=== PATIENT | female | born 1960 | race Caucasian/White ===

== ENCOUNTER 2016-11-30 19:09 | Inpatient (IN) | payer OTHER ==
[2016-11-30] MEDS ORDERED: SODIUM CHLORIDE 0.9% 500 ML IV STA (19:42)
[2016-11-30 19:55] LABS: Basophils % (A) 0 %; CH 31.9; Eosinophils % (A) 0 %; HDW 2.08; HGB 16.4 gm/dL (11.4-16.0); Luc # (Auto) 0.31; Luc % (Auto) 4; Lymphocytes % (A) 35 %; MCH 31.2 pg (25.0-35.0); MCHC 32.2 g/dL (31.0-37.0); MCV 97.1 fL (80.0-100.0); Mean Platelet Volume 7.4; Monocytes # (A) 0.6 k/uL (0-1.0); Monocytes % (A) 7 %; Neutrophils # (A) 4.7 k/uL (1.3-7.7); Neutrophils % (A) 54 %; RBC 5.25 m/uL (3.80-5.40); WBC 8.7 k/uL (3.8-10.6); WBC (Perox) 8.59
--- NOTE | 2016-11-30 19:56 | ED ---
Overdose HPI - General Chief Complaint: Overdose Stated Complaint: Overdose Time Seen by Provider: 11/30/16 19:25 Source: patient Mode of arrival: EMS Limitations: altered mental status - History of Present Illness Initial Comments: This patient is a 56-year-old woman who comes in by embolus to be evaluated for probable overdose. It is reported that the patient had been drinking, and then family believe she took probably around 20 or more Ativan 0.5 mg tablets. The patient reportedly told him that she was feeling suicidal. When I am evaluating the patient she is very intoxicated and not giving me any history. MD Complaint: intentional overdose -: hour(s) Intent: other How Overdose Was Discovered: family/friend present at time - Related Data Home Medications Medication Instructions Recorded Confirmed Albuterol Inhaler [Ventolin Hfa 1 - 2 puff INHALATION RT-Q6H PRN 11/30/16 Inhaler] Desvenlafaxine Succinate [Pristiq] 100 mg PO DAILY 11/30/16 11/30/16 Ergocalciferol (Vitamin D2) 50,000 unit PO Q7D 11/30/16 11/30/16 [Vitamin D2] HYDROcodone/APAP 10-325MG [[place] 1 tab PO Q5H PRN 11/30/16 11/30/16 10-325] LORazepam [Ativan] 0.5 mg PO BID 11/30/16 11/30/16 Lurasidone HCl [Latuda] 60 mg PO DAILY 11/30/16 11/30/16 Omeprazole 40 mg PO DAILY 11/30/16 11/30/16 PARoxetine HCL [Paxil] 40 mg PO DAILY 11/30/16 11/30/16 Umeclidinium [place] [Incruse 1 puff INHALATION RT-DAILY 11/30/16 11/30/16 Ellipta] Previous Rx's Medication Instructions Recorded Disulfiram 250 mg PO DIRECTED #50 tablet 12/01/16 Nicotine 21Mg/24Hr Patch [Habitrol] 1 patch TRANSDERM DAILY #14 patch 12/01/16 predniSONE 10 mg PO DAILY #30 tab 12/01/16 Allergies Allergy/AdvReac Type Severity Reaction Status Date / Time latex Allergy Rash/Hives Verified 11/30/16 19:54 Review of Systems ROS Statement: Those systems with pertinent positive or pertinent negative responses have been documented in the HPI. ROS Other: All systems not noted in ROS Statement are negative. Limitations: ROS unobtainable due to patients medical condition Past Medical History Past Medical History: COPD Additional Past Medical History / Comment(s): fatty liver History of Any Multi-Drug Resistant Organisms: None Reported Additional Past Surgical History / Comment(s): polyps on throat removed Past Anesthesia/Blood Transfusion Reactions: Previous Problems w/ Anesthesia Past Psychological History: Anxiety, Depression Smoking Status: Current every day smoker Past Alcohol Use History: Abuse, Daily Past Drug Use History: None Reported - Past Family History Father Family Medical History: Seizure Disorder Mother Family Medical History: COPD, Diabetes Mellitus, Hypertension Additional Family Medical History / Comment(s): rapid heart rate General Exam Limitations: altered mental status General appearance: appears intoxicated Head exam: Present: atraumatic, normocephalic Eye exam: Present: normal appearance, PERRL, EOMI. Absent: scleral icterus, conjunctival injection ENT exam: Present: normal oropharynx Neck exam: Present: full ROM. Absent: tenderness, meningismus Respiratory exam: Present: normal lung sounds bilaterally. Absent: respiratory distress, wheezes, rales, rhonchi, stridor Cardiovascular Exam: Present: normal rhythm, tachycardia, normal heart sounds. Absent: systolic murmur, diastolic murmur, rubs, gallop GI/Abdominal exam: Present: soft. Absent: distended, tenderness, guarding, rebound, organomegaly, mass, pulsatile mass, hernia Extremities exam: Present: normal inspection, normal capillary refill. Absent: pedal edema, calf tenderness Back exam: Present: normal inspection. Absent: CVA tenderness (R), CVA tenderness (L) Neurological exam: Present: altered, CN II-XII intact, reflexes normal. Absent : motor sensory deficit Skin exam: Present: warm, dry, intact, normal color. Absent: rash Course Vital Signs 11/30/16 11/30/16 11/30/16 19:10 19:46 20:31 Temperature 98.5 F Pulse Rate 125 H 120 H 114 H Respiratory 18 20 22 Rate Blood Pressure 117/67 116/60 107/58 O2 Sat by Pulse 92 L 92 L 93 L Oximetry 11/30/16 11/30/16 11/30/16 21:00 21:30 22:30 Temperature Pulse Rate 114 H 110 H 103 H Respiratory 20 20 22 Rate Blood Pressure 102/56 99/56 102/59 O2 Sat by Pulse 92 L 92 L 93 L Oximetry 11/30/16 12/01/16 12/01/16 23:58 00:05 00:30 Temperature Pulse Rate 98 99 105 H Respiratory 20 Rate Blood Pressure 109/57 O2 Sat by Pulse 93 L Oximetry 12/01/16 12/01/16 12/01/16 01:22 02:25 03:36 Temperature Pulse Rate 102 H 98 98 Respiratory 20 18 18 Rate Blood Pressure 108/64 114/59 126/68 O2 Sat by Pulse 94 L 95 97 Oximetry 12/01/16 12/01/16 12/01/16 04:37 05:32 06:27 Temperature Pulse Rate 98 93 94 Respiratory 18 18 18 Rate Blood Pressure 126/68 105/53 98/53 O2 Sat by Pulse 97 98 97 Oximetry Medical Decision Making - Lab Data Result diagrams: 12/01/16 05:46 12/01/16 05:46 Lab Results 11/30/16 11/30/16 11/30/16 Range/Units 19:43 19:43 19:43 WBC 8.7 (3.8-10.6) k/uL RBC 5.25 (3.80-5.40) m/uL Hgb 16.4 H (11.4-16.0) gm/dL Hct 51.0 H (34.0-46.0) % MCV 97.1 (80.0-100.0) fL MCH 31.2 (25.0-35.0) pg MCHC 32.2 (31.0-37.0) g/dL RDW 13.0 (11.5-15.5) % Plt Count 214 (150-450) k/uL Neutrophils % 54 % Lymphocytes % 35 % Monocytes % 7 % Eosinophils % 0 % Basophils % 0 % Neutrophils # 4.7 (1.3-7.7) k/uL Lymphocytes # 3.0 (1.0-4.8) k/uL Monocytes # 0.6 (0-1.0) k/uL Eosinophils # 0.0 (0-0.7) k/uL Basophils # 0.0 (0-0.2) k/uL Sodium 135 L (137-145) mmol/L Potassium 3.7 (3.5-5.1) mmol/L Chloride 100 (98-107) mmol/L Carbon Dioxide 19 L (22-30) mmol/L Anion Gap 16 mmol/L BUN 6 L (7-17) mg/dL Creatinine 0.80 (0.52-1.04) mg/dL Est GFR (MDRD) Af Amer >60 (>60 ml/min/1.73 sqM) Est GFR (MDRD) Non-Af >60 (>60 ml/min/1.73 sqM) Glucose 97 (74-99) mg/dL Calcium 8.8 (8.4-10.2) mg/dL Total Bilirubin 0.4 (0.2-1.3) mg/dL AST 48 H (14-36) U/L ALT 56 H (9-52) U/L Alkaline Phosphatase 87 (38-126) U/L Total Protein 7.0 (6.3-8.2) g/dL Albumin 4.2 (3.5-5.0) g/dL Urine HCG, Qual (Not Detectd) Salicylates <1.0 mg/dL Urine Opiates Screen Not Detected (NotDetected) Ur Oxycodone Screen Not Detected (NotDetected) Urine Methadone Screen Not Detected (NotDetected) Ur Propoxyphene Screen Not Detected (NotDetected) Acetaminophen <10.0 ug/mL Ur Barbiturates Screen Not Detected (NotDetected) U Tricyclic Antidepress Not Detected (NotDetected) Ur Phencyclidine Scrn Not Detected (NotDetected) Ur Amphetamines Screen Not Detected (NotDetected) U Methamphetamines Scrn Not Detected (NotDetected) U Benzodiazepines Scrn Detected H (NotDetected) Urine Cocaine Screen Not Detected (NotDetected) U Marijuana (THC) Screen Not Detected (NotDetected) Serum Alcohol 152 mg/dL 11/30/16 Range/Units 19:43 WBC (3.8-10.6) k/uL RBC (3.80-5.40) m/uL Hgb (11.4-16.0) gm/dL Hct (34.0-46.0) % MCV (80.0-100.0) fL MCH (25.0-35.0) pg MCHC (31.0-37.0) g/dL RDW (11.5-15.5) % Plt Count (150-450) k/uL Neutrophils % % Lymphocytes % % Monocytes % % Eosinophils % % Basophils % % Neutrophils # (1.3-7.7) k/uL Lymphocytes # (1.0-4.8) k/uL Monocytes # (0-1.0) k/uL Eosinophils # (0-0.7) k/uL Basophils # (0-0.2) k/uL Sodium (137-145) mmol/L Potassium (3.5-5.1) mmol/L Chloride (98-107) mmol/L Carbon Dioxide (22-30) mmol/L Anion Gap mmol/L BUN (7-17) mg/dL Creatinine (0.52-1.04) mg/dL Est GFR (MDRD) Af Amer (>60 ml/min/1.73 sqM) Est GFR (MDRD) Non-Af (>60 ml/min/1.73 sqM) Glucose (74-99) mg/dL Calcium (8.4-10.2) mg/dL Total Bilirubin (0.2-1.3) mg/dL AST (14-36) U/L ALT (9-52) U/L Alkaline Phosphatase (38-126) U/L Total Protein (6.3-8.2) g/dL Albumin (3.5-5.0) g/dL Urine HCG, Qual Not Detected (Not Detectd) Salicylates mg/dL Urine Opiates Screen (NotDetected) Ur Oxycodone Screen (NotDetected) Urine Methadone Screen (NotDetected) Ur Propoxyphene Screen (NotDetected) Acetaminophen ug/mL Ur Barbiturates Screen (NotDetected) U Tricyclic Antidepress (NotDetected) Ur Phencyclidine Scrn (NotDetected) Ur Amphetamines Screen (NotDetected) U Methamphetamines Scrn (NotDetected) U Benzodiazepines Scrn (NotDetected) Urine Cocaine Screen (NotDetected) U Marijuana (THC) Screen (NotDetected) Serum Alcohol mg/dL - EKG Data -: EKG Interpreted by Pa EKG shows normal: sinus rhythm, axis (Normal), intervals (Normal), QRS complexes (Normal), ST-T waves (Normal) Rate: tachycardia (Rate approximately 126 bpm) Critical Care Time Critical Care Time: Yes (35 minutes) Disposition Clinical Impression: Intentional benzodiazepine overdose Disposition: ADMITTED IP TO THIS HOSP Condition: Serious
[2016-11-30 20:10] LABS: ALT 56 U/L (9-52); AST 48 U/L (14-36); Acetaminophen <10.0 ug/mL; Alkaline Phosphatase 87 U/L (38-126); Anion Gap 16 mmol/L; Blood Urea Nitrogen 6 mg/dL (7-17); Calcium 8.8 mg/dL (8.4-10.2); Carbon Dioxide 19 mmol/L (22-30); Chloride 100 mmol/L (98-107); Glucose 97 mg/dL (74-99); Non-African American GFR(MDRD) >60 (>60 ml/min/1.73 sqM); Potassium 3.7 mmol/L (3.5-5.1); Salicylate <1.0 mg/dL; Sodium 135 mmol/L (137-145); Total Bilirubin 0.4 mg/dL (0.2-1.3)
[2016-11-30 20:24] LABS: Alcohol 152 mg/dL
[2016-11-30] MEDS ORDERED: NALOXONE 0.4 MG/ML 1 ML VIAL IV PRN (23:42)
[2016-11-30] MEDS ORDERED: SODIUM CHLORIDE 0.9% 1,000 ML IV SCH (23:45)
[2016-11-30] MEDS ORDERED: IPRATROPIUM-ALBUTEROL 3 ML NEB INHALATION STA (23:46)
--- NOTE | 2016-12-01 00:18 | XR ---
EXAM: XR Chest, 1 View. CLINICAL HISTORY: Reason: cough TECHNIQUE: Frontal view of the chest. COMPARISON: 08/25/15. FINDINGS: Lungs: Unremarkable. No consolidation. Pleural spaces: Unremarkable. No pneumothorax. Heart: Unremarkable. No cardiomegaly. Mediastinum: Unremarkable. Bones: Unremarkable. No acute fracture. IMPRESSION: No evidence of acute pulmonary disease
[2016-12-01 02:53] VITALS: RESP 18
[2016-12-01 06:14] LABS: Basophils % (A) 0 %; CH 31.7; CHCM 33.6; Eosinophils % (A) 0 %; HCT 46.4 % (34.0-46.0); HGB 15.6 gm/dL (11.4-16.0); Luc % (Auto) 2; Lymphocytes # (A) 1.7 k/uL (1.0-4.8); Lymphocytes % (A) 21 %; MCH 31.9 pg (25.0-35.0); MCHC 33.6 g/dL (31.0-37.0); MCV 94.9 fL (80.0-100.0); Mean Platelet Volume 7.2; Monocytes # (A) 0.6 k/uL (0-1.0); Monocytes % (A) 8 %; Neutrophils # (A) 5.5 k/uL (1.3-7.7); Neutrophils % (A) 68 %; RBC 4.89 m/uL (3.80-5.40); RDW 12.8 % (11.5-15.5); WBC 8.1 k/uL (3.8-10.6); WBC (Perox) 7.99
[2016-12-01 06:30] LABS: ALT 55 U/L (9-52); AST 40 U/L (14-36); Alkaline Phosphatase 78 U/L (38-126); Anion Gap 8 mmol/L; Blood Urea Nitrogen 6 mg/dL (7-17); Calcium 8.8 mg/dL (8.4-10.2); Carbon Dioxide 23 mmol/L (22-30); Chloride 106 mmol/L (98-107); Glucose 98 mg/dL (74-99); Non-African American GFR(MDRD) >60 (>60 ml/min/1.73 sqM); Potassium 4.3 mmol/L (3.5-5.1); Sodium 137 mmol/L (137-145); Total Bilirubin 0.7 mg/dL (0.2-1.3); Total Protein 6.2 g/dL (6.3-8.2)
[2016-12-01] MEDS ORDERED: FAMOTIDINE 20 MG/2 ML VIAL IV SCH (09:00)
--- NOTE | 2016-12-01 12:33 | P.CN ---
Psychiatric Consult - . Consult date: 12/01/16 Consult:: DATE OF SERVICE: 12/01/2016 IDENTIFYING DATA: This patient is a 56-year-old female who was admitted to medical floor for apparent overdose.. HISTORY OF PRESENT ILLNESS: The patient presents with with history of taking 25 Ativan while intoxicated. Family brought her to the emergency room. Patient found sitting up in her bed, with sister Morelia and onur Silviano and sitter at bedside. Patient responds to name, Morelia asked to speak to policy writer sales. Della K permission for me to speak to sister and fimisbah. Sister states that Della was not suicidal and that it was a normal day in terms of her drinking amount. Sister states that Della worries about how she' ll be able to afford her beer and cigarettes. Sister and her 's support patient, patient does not have any income, and does not work. Sister states Della has never made a suicide attempt in the past, and has never had a psychiatric hospitalization. Sister does agree that Della needs to stop drinking. Sister states that no one in the home drinks as much as Della does. Sister states that she drinks approximately 4-5 beers, (25 ounce). Onur agrees with this quantity. Both deny that she uses any other drugs of abuse. On exam patient reports that she does not recall taking the Ativan, that she thinks she can recall right up to that point, denies that she was having any thoughts of harming herself yesterday or recently. She does report depression and that she is currently being treated by Dr. Newman (family doctor). She was able to give history of her past antidepressant treatment and her current medication. She reports someone told her in the past she had manic-depressive disorder. When asked if she thought it would be a good idea for her to come into our mental health unit, she began to cry, "I don't want to be away from my family".. PAST PSYCHIATRIC HISTORY: Patient reports that she has had depression for about 25 years, has had medication trials with both general practitioners and psychiatrist, right now her provider is a family doctor. She is not in counseling, she has in the past. Patient denies any past history of suicide attempts. Patient denies psychiatric hospitalizations.. PAST MEDICAL HISTORY: Per record. ALLERGIES: Latex. CHEMICAL DEPENDENCY HISTORY: Patient reports that she thinks she began drinking in her teens, but never on a daily basis until she was an adult. States that she has had a 7 year and a 4 year period where she was abstinent. She can't recall why she was abstinent or how she managed to be abstinent. She reports she drinks 4-5 beers a day, each beer is 25 ounces. She also smokes cigarettes. She denies other drugs of abuse. She denies past history of inpatient rehabs or outpatient treatment. She is aware of AA.. FAMILY PSYCHIATRIC HISTORY: Patient reports that her mother had a nervous breakdown, but does not know the diagnosis.. FAMILY CHEMICAL DEPENDENCY HISTORY: Patient and sister report nieces and nephews have substance abuse problems.. LEGAL HISTORY: Patient denies past history of DUIs, no pending problems. SOCIAL HISTORY: Patient reports that she had a special childhood, that she was spoiled. She denies any physical or sexual abuse. She reports that she got at age 16 and dropped out of high school. She has 2 children a boy age 40 and a daughter 34, she has 4 grandchildren. She reports she has a good relationship with them.. MENTAL STATUS EXAM: Alert and oriented to self and location, 11/26/2016 (today is December 01Sunday). Cooperative in bed in hospital gown, hair combed. Good eye contact, tearful at times. Speech low volume normal rate and production. Coherent logical and goal directed, no JOSE ALEJANDRO, no FOI, no ideas of reference, no delusions. Denies auditory or visual hallucinations. Mood dysphoric and tearful, affect constricted, congruent with mood. Denies suicidal ideation, denies intent, denies plan, denies homicidal ideation.. IMPRESSIONS: 56 -year-old female admitted to medical floor for overdose and intoxication. Patient denies any recollection of making a suicide attempt, denies feeling suicidal in the recent past. Denies past history of suicide attempts, or past psychiatric hospitalizations. She is tearful and dysphoric, no jhonathan no hypomania, no psychosis. Long history of alcohol use, severe. She reports to fairly long periods of abstinence but can give no history is to how or why she did it. She denies past history of delirium tremors. Alcohol use disorder, severe Alcohol intoxication Suicide attempt Alcohol-induced depression versus depression unspecified Rule out bipolar disorder, unspecified PLAN: . Recommended patient that she consider inpatient treatment for both depression and alcohol. Offered inpatient psychiatric admission to the third floor here in the hospital , she declined. Recommended inpatient rehab, at a facility that could manage both the alcohol use disorder and the depression, i.e. [facility], patient declined. I did offer the patient that I would return this afternoon, so that she could think about this decision and discuss it with her sister, she agreed. She then asked would I please discharge her. Explained to her that it was not up to me to discharge her from the medical admission. Patient no longer requires a sitter Continue CIWA to prevent DTs. 12/01/16 12:07
[2016-12-01] MEDS ORDERED: NICOTINE 21MG/24HR PATCH TRANSDERM SCH (13:45)
[2016-12-01 15:30] VITALS: BP 156/86; PULSE 106; TEMP 98.1
--- NOTE | 2016-12-01 15:35 | P.PN ---
Progress Note - Text INTERVERAL HISTORY: Returened to patient as we discussed to allow her to think about admission to either rehab or psychiatry. Patient was seated on side of bed, granddaughter present. Patient reports she is not interested in either inpatient admissions. States she is going to [place] to be with her daughter, granddaughter's mother. They all decided that since daughter does not drink that it would be a better environment. Della again denies suicidal ideation, granddaughter says her grandmother will not be alone, and everyone is wanting to help her. MENTAL STATUS EXAM:A&OX 3, good eye contact. Denies suicidal ideation. Mood euthymic, affect full range, normal intensity. PLAN:Patient will seek outpatient treatment for ETOH Dependence and depression.
[2016-12-01] MEDS ORDERED: LURASIDONE 40 MG TAB PO SCH (16:45)
[2016-12-01] MEDS ORDERED: PARoxetine 20 MG TAB PO SCH (17:00)
[2016-12-01] MEDS ORDERED: DESVENLAFAXINE SUCCINATE 50 MG TAB.ER.24H PO SCH (17:00)
[2016-12-01] MEDS ORDERED: PANTOPRAZOLE 40 MG TABLET PO SCH (17:00)
--- NOTE | 2016-12-01 17:37 | HP ---
DATE OF ADMISSION: 11/30/2016 PRESENTING COMPLAINT: Depressed. HISTORY OF PRESENTING COMPLAINT: This is a 56-year-old patient of Dr. Newman whose chronic stable medical conditions include COPD, GERD, osteoarthritis, fatty liver, anxiety. Patient lives with multiple family members. She went to her bedroom yesterday, felt just depressed, crying, and took about 20 pills of 0.5 mg Ativan. She states recently her family doctor has been adjusting her antidepressants. Patient also drinks 4 to 5 beers a day, each about 25 ounces; also smokes about 2 packs a day. Patient's grandson and granddaughter are by her bedside. Patient initially just wanted to go to sleep, and right now is not suicidal at all. REVIEW OF SYSTEMS: CONSTITUTIONAL: Tired. HEENT: Some nasal stuffiness. RESPIRATORY: Some wheezing, some dry cough. CARDIOVASCULAR: None. GASTROINTESTINAL: None. GENITOURINARY: None. MUSCULOSKELETAL: Some aches and pains in the joints. DERMATOLOGICAL: Bruising. HEMATOLOGICAL: As above. PSYCHIATRY: As above. NEUROLOGICAL: None. PAST HISTORY: 1. COPD. 2. GERD. 3. Osteoarthritis. 4. Fatty liver. 5. Anxiety. 6. Depression. PAST SURGICAL HISTORY: Polyps removed from the throat. SOCIAL HISTORY: Lives with multiple family members. Has smoked about 2 packs a day for over 40 years. Drinks about 4 to 5 25-ounce beers a day. FAMILY HISTORY: Father of seizure at age 58. HOME MEDICATIONS: 1. Omeprazole 40 mg a day. 2. Ativan 0.5 p.o. b.i.d. 3. Vitamin D2 50,000 units p.o. q.7 days. 4. Paxil 40 mg p.o. daily. 5. Ventolin HFA 1 to 2 puffs q.6 p.r.n. 6. Incruse 1 puff daily. 7. Latuda 60 mg p.o. daily. 8. [place] 10 one tablet p.o. q.5 p.r.n. 9. Pristiq 100 mg p.o. daily. ALLERGIES: LATEX. PHYSICAL EXAMINATION: VITAL SIGNS ON PRESENTATION: Temperature 98.5, pulse 125, respiration 18, blood pressure 117/67, pulse ox 92% on 2 L. GENERAL APPEARANCE: Well built; BMI of 31.2. Sitting up. Tired-appearing. Slightly wheezing. EYES: Pupils equal. Conjunctivae normal. HEENT: External appearance of nose and ears normal. Oral cavity normal. There is facial flushing. NECK: JVD not raised. Mass not palpable. RESPIRATORY: Effort increased. LUNGS: Decreased breath sounds. Some wheezing. CARDIOVASCULAR: First and second sounds normal. No edema. ABDOMEN: Soft, nontender. Liver and spleen not palpable. LYMPHATIC: No lymph node palpable in neck or axillae. PSYCHIATRIC: Alert and oriented x3. Mood and affect ( ) DERMATOLOGICAL: Diffuse bruising ( ) erythema. Spider nevi on the upper chest. INVESTIGATIONS: White count 8.7, hemoglobin 16.4. Potassium 3.7. BUN 6, creatinine 0.8. AST 48, ALT 56. Urine hCG negative. ASSESSMENT: 1. Acute overdose of Ativan from severe depression at home. Patient currently is not suicidal. 2. Chronic obstructive pulmonary disease exacerbation in a smoker. 3. Chronic nicotine dependence. Patient is a smoker. 4. Chronic alcoholic dependence. 5. Chronic alcoholic hepatitis. 6. Gastroesophageal reflux disease. 7. Primary osteoarthrosis in multiple joints. PLAN: Psychiatry was consulted, who offered the patient inpatient initially, and then okayed the patient from their standpoint to possibly go home. In the meantime, I will start the patient on nebulized bronchodilator, p.o. steroid, and also will give some Valium to prevent DTs. Patient does bruise easily; hence I will avoid any subcutaneous heparin. Will also give a nicotine patch.
--- NOTE | 2016-12-02 12:25 | DS ---
DATE OF ADMISSION: 11/30/2016 DATE OF DISCHARGE: 12/01/2016 FINAL DIAGNOSES: 1. Acute overdose of Ativan from severe depression. 2. Chronic obstructive pulmonary disease exacerbation in a smoker. 3. Chronic nicotine dependence. Patient is a smoker. 4. Chronic alcoholic dependence. 5. Alcoholic hepatitis. 6. Gastroesophageal reflux disease. 7. Primary osteoarthritis in multiple joints. HOSPITAL COURSE: This patient presented with overdose of Ativan. Seen by psychiatrist. Patient later denied being suicidal. Patient advised against alcohol and smoking. Patient had signs of chronic liver disease. PHYSICAL EXAMINATION: LUNGS: Decreased breath sounds. Mild wheezing. PSYCH: Alert and oriented x3. Some anxiety present. DISCHARGE MEDICATIONS: 1. Ventolin HFA 1 to 2 puffs q.6 p.r.n. 2. Pristiq 100 mg p.o. daily. 3. Vitamin D2 50,000 units p.o. every 7 days. 4. [place] 10 one tablet q.5 p.r.n. 5. Ativan 0.5 p.o. b.i.d. 6. Latuda 60 mg p.o. daily. 7. Prilosec 40 mg p.o. daily. 8. Paxil 40 mg p.o. daily. 9. Incruse Ellipta 1 puff daily. 10. ( ) mg a day for 7 days. 11. Disulfiram 250 mg a day. 12. Nicotine patch. 13. Prednisone taper. Follow up with psychiatrist at one week. Follow up with Dr. Newman in 3 days. CONSULTATION: Dr. Hernandez from Psychiatry.
== END 2016-12-01 18:12 | disposition home or self-care (01) | DRG 918 ==
LOC: EC 19:09 → 5MS5E 23:43
PROVIDERS: ADMIT Hospitalist; ATTEND Hospitalist
DX: T42.4X2A Poisoning by benzodiazepines, intentional self-harm, initial encounter (principal); J44.1 Chronic obstructive pulmonary disease with (acute) exacerbation; K76.0 Fatty (change of) liver, not elsewhere classified; K70.10 Alcoholic hepatitis without ascites; F32.9 Major depressive disorder, single episode, unspecified; F41.9 Anxiety disorder, unspecified; F10.20 Alcohol dependence, uncomplicated; F17.210 Nicotine dependence, cigarettes, uncomplicated; M19.91 Primary osteoarthritis, unspecified site; K21.9 Gastro-esophageal reflux disease without esophagitis; Z91.5 Personal history of self-harm; Z79.899 Other long term (current) drug therapy; Y92.009 Unspecified place in unspecified non-institutional (private) residence as the place of occurrence of the external cause
CPT/HCPCS: 36415; 71010; 80053; 80306; 80320; 81025; 83520; 85025; 93005; 94640

== ENCOUNTER → 2018-03-04 | Outpatient (CLI) | payer OTHER ==
--- NOTE | 2018-03-04 14:14 | MR ---
MR brain without contrast HISTORY: R 26.89, gait abnormality Multiplanar multisequence imaging through the brain No comparisons There is no restricted diffusion. Deep white matter hyperintensities are present on inversion recover y and T2-weighted sequences, the largest in the right frontal lobe measures 6 to 7 mm on axial image 20, there are approximately 10-15 lesions present to include subcortical lesions in the frontal lobe on the right. The largest in the left external capsule on axial image 18 measures 6 to 7 mm. There is no hemorrhage or hydrocephalus. Corpus callosum, pituitary, cervical medullary junction, cer ebellopontine angles are normal. There is relative atrophy of left cerebellar hemisphere as compared to the right which could possibly be congenital. The orbits show a symmetric appearance. There are normal vascular flow voids, left vertebral artery i s dominant. IMPRESSION: Asymmetric decreased size of the left cerebellar hemisphere in relation to the right, pos sibly congenital. Nonspecific scattered foci of demyelination could be related to migraine headaches, vasculitis, chronic small vessel ischemia, hypertension or Lyme disease.
== END | disposition home or self-care (01) ==
LOC: RADMRIMAIN 12:46
PROVIDERS: ATTEND Family Medicine
DX: R26.89 Other abnormalities of gait and mobility (principal)
CPT/HCPCS: 70551

== ENCOUNTER 2023-05-15 08:50 | Day surgery (SDC) | payer OTHER ==
[2023-05-15 09:45] LABS: Mean Platelet Volume 8.4; Platelet Count 185 k/uL (150-450)
[2023-05-15] MEDS ORDERED: ALPRAZolam 0.5 MG TAB PO STA (09:53)
[2023-05-15 10:00] LABS: INR 0.9 (<1.2)
[2023-05-15 10:21] VITALS: TEMP 98.7
--- NOTE | 2023-05-15 11:37 | XR ---
EXAMINATION TYPE: XR chest 1V portable DATE OF EXAM: 05/15/2023 COMPARISON: 04/09/2023. HISTORY: Postlung biopsy TECHNIQUE: Single frontal view of the chest is obtained. FINDINGS: There is a right upper lobe lung mass. There is a less than 5% right apical pneumothorax. Left lung clear. Underlying COPD. Heart size normal. No pleural effusion or interstitial edema. Hyper trophic changes of the shoulders. IMPRESSION: Tiny less than 5% right apical pneumothorax.
--- NOTE | 2023-05-15 11:50 | CT ---
EXAMINATION TYPE: CT biopsy lung RT DATE OF EXAM: 05/15/2023 COMPARISON: 04/12/2023 HISTORY: RT lung CT guided biopsy CT DLP: 3024 mGycm The procedure is discussed with the patient, the risks, complications, benefits and alternatives, wer e discussed and any questions were answered. Informed consent was obtained. The patient is placed p deon on the CT table, prepped and draped in the usual sterile fashion. Utilizing a 20 gauge core biopsy needle access into the right upper lobe mass was achieved with singl e sample obtained. Pathology confirmed adequate sample. All elements of maximal barrier technique w ere utilized. The patient remained stable throughout the procedure with tiny less than 5% right apic al pneumothorax post procedure. IMPRESSION: 1. Successful CT guided core biopsy of a right upper lobe lung mass
[2023-05-15 11:52] VITALS: RESP 18
--- NOTE | 2023-05-15 13:42 | XR ---
EXAMINATION TYPE: XR chest 1V portable DATE OF EXAM: 05/15/2023 COMPARISON: 05/15/2023 HISTORY: Postlung biopsy TECHNIQUE: Single frontal view of the chest is obtained. FINDINGS: There is no focal air space opacity, pleural effusion, or pneumothorax seen. The cardiac silhouette size is within normal limits. The osseous structures are intact. Right upper lobe lung m ass noted. No sizable pneumothorax. Asymmetry in the right first rib stable and likely congenital. IMPRESSION: 1. No sizable pneumothorax. Right upper lobe lung mass stable.
[2023-05-15 14:55] VITALS: BP 102/55; PULSE 86
== END 2023-05-15 14:15 | disposition home or self-care (01) ==
LOC: RADPROMAIN 08:50
PROVIDERS: ATTEND Internal Medicine Critical Care Medicine
DX: J93.9 Pneumothorax, unspecified (principal); M89.8X1 Other specified disorders of bone, shoulder; R91.8 Other nonspecific abnormal finding of lung field; J44.9 Chronic obstructive pulmonary disease, unspecified; Z79.51 Long term (current) use of inhaled steroids; Z79.899 Other long term (current) drug therapy
CPT/HCPCS: 32408; 36415; 71045; 85049; 85610

== ENCOUNTER → 2023-07-23 | Outpatient (CLI) | payer OTHER ==
[2023-07-23 14:35] LABS: African American GFR (CKD) >90 (>60 ml/min/1.73 sqM); Blood Urea Nitrogen 6 mg/dL (7-17); Non-African American GFR(CKD) >90 (>60 ml/min/1.73 sqM)
--- NOTE | 2023-07-23 22:12 | CT ---
EXAMINATION TYPE: CT angio chest CT DLP: 392 mGycm, Automated exposure control for dose reduction was used. DATE OF EXAM: 07/23/2023 3:15 PM COMPARISON: CT chest abdomen pelvis 04/12/2023 CLINICAL INDICATION:Female, 63 years old with history of C34.11 Lung cancer; hx of brain cancer, dysp chriss TECHNIQUE/CONTRAST: CTA scan of the thorax is performed with IV Contrast, patient injected with 80 cc mL of Isovue 300, M IP images are created and reviewed these are created on a separate workstation.. FINDINGS: There is adequate contrast bolus and timing. PULMONARY ARTERIES: There is no evidence for a filling defect within the pulmonary vasculature to sug gest acute pulmonary embolism. Pulmonary trunk is normal in size. Trunk measures 2.4 CM. HEART: Normal heart size. Mild to moderate coronary artery calcification and/or stents. Trace perica rdial fluid. AORTA: Mild to moderate atherosclerotic calcifications of the aorta and branches. Ascending aorta is 3.2 CM, descending is 2.6 CM. Aorta is considered normal in size. Branch vessels from the arch show no significant narrowing. LOWER NECK: No significant findings. MEDIASTINUM: Redemonstration of several prominent nodes. There is a borderline enlarged AP window nod e with short axis of 9 mm,2212 was 7.4 mm. Mildly enlarged right precarinal node with short axis of 1 2 mm, was 10.6 mm. Left lower paratracheal node with a short axis of 12 mm, was about 8.5 mm. Mild ri ght hilar soft tissue thickening superiorly shows a short axis of 10.1 mm, was 9 mm. SOFT TISSUES/LYMPH NODES: Stable chest wall soft tissues. A lipoma is again seen within the right inf raspinatus. No axillary adenopathy. LUNGS/ PLEURA: Moderate upper lobe predominant emphysematous changes with interstitial thickening/sca rring again noted. An anterior right upper lobe lung mass is again seen, spiculated in appearance and abuts a long segment of the pleura. This measures 4 x 2.3 cm image 44 series 5, and when measured in a similar fashion previously was 3.6 x 2.4 cm. A nodular fingerlike extension from the mass inferior ly, image 50, also appears slightly larger now measuring 9 mm and was 7.5 mm. No clear evidence of ne w or enlarging additional lesions. No consolidation, pleural effusion, or pneumothorax. Mild left low er lobe subsegmental atelectatic changes. AIRWAY: Central airways are patent. Mild bronchial wall thickening seen in the hilar regions and exte nding peripherally, could be sequela of acute or chronic bronchitis. MUSCULOSKELETAL: No acute osseous abnormality. Mild disc degeneration changes are present throughout the included thoracolumbar spine. UPPER ABDOMEN: No significant change. Stable mild thickening of the left adrenal, could be related to hyperplasia or adenomatoid change. Atherosclerotic disease of the upper normal aorta with mild narro wing of the proximal celiac and superior mesenteric arteries. IMPRESSION: 1. No evidence of pulmonary arterial embolus. 2. Spiculated right upper lobe lung mass shows minimal interval increase in size. 3. Mildly prominent right hilar and mediastinal lymph nodes appear minimally larger than before, of uncertain metastatic status. These can be reassessed on follow-up, or PET/CT may be considered for as sessment of metabolic activity.
== END | disposition home or self-care (01) ==
LOC: RADCTMAIN 13:50
PROVIDERS: ATTEND Internal Medicine Hematology & Oncology
DX: C34.11 Malignant neoplasm of upper lobe, right bronchus or lung (principal); R06.00 Dyspnea, unspecified; Z85.841 Personal history of malignant neoplasm of brain
CPT/HCPCS: 82565; 84520; 71275; Q9967

== ENCOUNTER → 2023-08-01 | Outpatient (CLI) | payer OTHER ==
--- NOTE | 2023-08-03 13:41 | MR ---
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 Secondary malignant neoplasm of brain COMPARISON: 04/11/2023 TECHNIQUE: Multi planar, multi sequence imaging was performed through the brain including: T1, T2, In version recovery, susceptibility weighted imaging and gradient echo imaging and Diffusion weighted im aging. The patient was then given intravenous contrast and multi planar, T1 fat-saturation images wer e obtained. IV Contrast: 8 cc Gadavist FINDINGS: Extensive vasogenic edema with high T2 signal within the left frontal lobe with focal intra-axial mas s the koch-white matter junction measuring 12 x 12 x 11 mm previously 15 x 13 x 15 mm. There is postc ontrast enhancement. Additional lesions: * RIGHT frontal lobe measuring 5 mm is similar. * Right cerebellum measuring 3 mm is similar * Inferior right temporal lobe measuring 6 mm is similar along the more lateral lesion measuring 3 m m which is more conspicuous on prior dictation slice selection. * New lesion in the left parietal series 901 image 135 measuring 3 mm. * New lesion left posterior frontal lobe series 901 image 148 measuring 4 mm. * New lesion posterior left frontal lobe series 901 image 157 measuring 4 mm. * New lesion posterior right frontal lobe series 901 image 131 measuring 3 mm. * New lesion left frontal lobe series 901 image 34 measuring 2 mm Atrophy changes of the right left cerebellar hemisphere. Diffusion-weighted imaging shows no evidence of restricted diffusion to suggest acute/subacute infarc t. Intracranial arterial flow voids are maintained. Midline structures show no abnormality. The susce ptibility weighted images do not reveal any evidence for micro-hemorrhage. The bone marrow signal is within normal limits. Paranasal sinuses and mastoid air cells: No significant paranasal sinus disease. Visualized orbits: Orbital contents are intact. IMPRESSION: Few scattered new metastatic foci as well as stable and a dominant larger lesion which is slightly de creased in size from prior.
== END | disposition home or self-care (01) ==
LOC: RADMRIMAIN 15:16
PROVIDERS: ATTEND Radiology Radiation Oncology
DX: C79.31 Secondary malignant neoplasm of brain (principal); G93.9 Disorder of brain, unspecified; R91.8 Other nonspecific abnormal finding of lung field
CPT/HCPCS: 70553; A9585

== ENCOUNTER → 2023-09-25 | Outpatient (CLI) | payer OTHER ==
--- NOTE | 2023-09-26 15:30 | MR ---
EXAMINATION TYPE: MR brain wo/w con DATE OF EXAM: 09/25/2023 COMPARISON: 08/01/2023 HISTORY: 63-year-old female G93.9, Dizziness, lung/brain cancer. TECHNIQUE: Multiplanar, multisequence images of the brain and brainstem were acquired before and aft er administration of 8.5 mL IV Gadavist. Diffusion weighted imaging is performed. FINDINGS: No evidence for acute infarction infarction, midline shift, herniation, effacement of basal cisterns, or extra-axial fluid collection. The ventricles and sulci are age-appropriate. Major intracranial flow voids are intact. Redemonstrated asymmetrically smaller left cerebellar hemisphere. T2/FLAIR weighted sequences continue to show scattered vasogenic edema corresponding to multiple intr acranial metastases of the koch-white matter interfaces and posterior hemispheres. All of these enhancing foci are largely unchanged. Approximately 5 in the left cerebral hemisphere, 4 in the right cerebral hemisphere, and one in the right cerebellar hemisphere. The largest lesion is ring-enhancing left paramedian superior left frontal region and is slightly sma ller now measuring 10 x 9 mm versus 12 x 12 mm, previously. No new enhancing lesions are seen. Dural venous sinuses are patent. Midline structures demonstrate normal morphology. The craniocervical junction is normal. Moderate mucosal thickening right maxillary sinus with some frothy air-fluid level. Moderate mucosal thickening throughout their ethmoid air cells. Opacification left mastoid air cells. Some degenerative change at the right TMJ. Globes are intact. IMPRESSION: 1. Redemonstrated a few scattered punctate intracranial metastases in both cerebral hemispheres and a lso the right cerebellum. These are largely unchanged measuring up to 4 mm. However, the largest loca andre in the left paramedian superior left frontal lobe is slightly smaller at 10 x 9 mm versus 12 x 12 mm, previously. The lesions continue to show some associated local vasogenic edema. 2. Possible acute on chronic right maxillary sinusitis. Clinically correlate. 3. Fluid in the left mastoid air cells. Correlate for any mastoid pain to exclude mastoiditis.
== END | disposition home or self-care (01) ==
LOC: RADMRIMAIN 13:30
PROVIDERS: ATTEND Radiology Radiation Oncology
DX: C79.31 Secondary malignant neoplasm of brain (principal); H74.8X2 Other specified disorders of left middle ear and mastoid; G93.9 Disorder of brain, unspecified; R91.8 Other nonspecific abnormal finding of lung field
CPT/HCPCS: 70553; A9585

== ENCOUNTER → 2023-09-26 | Outpatient (CLI) | payer OTHER ==
[2023-09-26 14:57] LABS: African American GFR (CKD) >90 (>60 ml/min/1.73 sqM); Blood Urea Nitrogen 9 mg/dL (7-17); Non-African American GFR(CKD) 87 (>60 ml/min/1.73 sqM)
--- NOTE | 2023-09-26 17:35 | CT ---
EXAMINATION TYPE: CT ChestAbdPelvis w con CT DLP: 1285.7 mGycm, Automated exposure control for dose reduction was used. DATE OF EXAM: 09/26/2023 4:34 PM COMPARISON: 04/04/2023, 07/23/2023. CLINICAL INDICATION:Female, 63 years old with history of C34.11 LUNG CANCER; PHH, f/u lung ca Technique: CT ChestAbdPelvis w con; Multiple axial images were obtained. Two-dimensional coronal and sagittal reconstructions were obtained. Contrast used:100 mL of Isovue 370 with IV Contrast, Oral contrast used: with Oral Contrast Findings: CHEST: LUNGS/ PLEURA: No pleural effusion, pneumothorax, focal consolidation. Spiculated anterior right uppe r lobe mass measuring 3.7 x 1.9 cm measuring sagittally which is similar dating back to 04/04/2023. N o new or enlarging pulmonary nodules. AIRWAY: Patent and unremarkable.. HEART: Size within normal limits. No pericardial effusion. MEDIASTINUM: Few mediastinal lymph nodes measuring less than 1 cm short axis. These lymph nodes are s imilar to 04/12/2023. VASCULATURE: No aortic aneurysm. MUSCULOSKELETAL: No acute osseous abnormalities. No aggressive osseous lesion. Right infraspinatus in tramuscular lipoma measuring up to 7.8 x 2.5 cm.r SOFT TISSUES/LYMPH NODES: Unremarkable. LOWER NECK: No significant findings. ABDOMEN: ABDOMEN LIVER: Unremarkable GALLBLADDER AND BILE DUCTS: Unremarkable. PANCREAS: Unremarkable. SPLEEN: Unremarkable. ADRENAL GLANDS: Right adrenal glands unremarkable. Thickening of the left adrenal gland. KIDNEYS AND URETERS: No evidence of hydronephrosis or renal calculus. The kidneys enhance symmetrical ly. Contrast is demonstrated within both collecting systems on the delayed phase. PELVIS BLADDER: Unremarkable REPRODUCTIVE: Unremarkable. ABDOMEN & PELVIS STOMACH AND BOWEL: Stomach and duodenum are unremarkable. No focal bowel wall thickening or surroundi ng inflammatory changes. Enteric contrast reaches the large bowel. No evidence of bowel obstruction. PERITONEUM: No evidence of pneumoperitoneum or free fluid. VASCULATURE: Infrarenal abdominal aortic fusiform aneurysm with mural thrombus. This measures 4.3 joshua timeters previously 3.9 centimeters . Moderate atherosclerotic calcification of the aorta and its bra nches. MUSCULOSKELETAL: No acute osseous abnormalities. No aggressive osseous lesion. S-shaped scoliotic cur vature of the thoracal lumbar spine. LYMPH NODES: No evidence for lymphadenopathy. SOFT TISSUE/ABDOMINAL WALL: Unremarkable IMPRESSION: 1. Stable right upper lobe peripheral 3.7 x 1.9 cm spiculated mass compared to 04/04/2023. Mild thick ening of the left adrenal gland. 2. No pathologically enlarged lymph nodes identified within the chest abdomen pelvis. 3. Increase in size of Infrarenal abdominal aortic aneurysm measuring up to 4.3 cm, previously 3.9 c [id number]
== END | disposition home or self-care (01) ==
LOC: RADCTMAIN 14:18
PROVIDERS: ATTEND Internal Medicine Hematology & Oncology
DX: I71.43 Infrarenal abdominal aortic aneurysm, without rupture (principal); E27.8 Other specified disorders of adrenal gland; C79.31 Secondary malignant neoplasm of brain; C34.11 Malignant neoplasm of upper lobe, right bronchus or lung; J44.9 Chronic obstructive pulmonary disease, unspecified; E78.5 Hyperlipidemia, unspecified; R91.8 Other nonspecific abnormal finding of lung field
CPT/HCPCS: 82565; 84520; 71260; 74177; 36415; Q9967

== ENCOUNTER → 2023-10-11 | Outpatient (CLI) | payer OTHER ==
[2023-10-11 15:01] LABS: African American GFR (CKD) >90 (>60 ml/min/1.73 sqM); Blood Urea Nitrogen 6 mg/dL (7-17); Non-African American GFR(CKD) 85 (>60 ml/min/1.73 sqM)
--- NOTE | 2023-10-11 16:44 | CT ---
EXAMINATION TYPE: CT angio chest DATE OF EXAM: 10/11/2023 3:34 PM COMPARISON: 07/23/2023 HISTORY: SOB. R/O PE. Lung and Brain CA. CT DLP: 601 mGycm Automated exposure control for dose reduction was used. CONTRAST: CTA scan of the thorax is performed with IV Contrast, patient injected with 100ml mL of Isovue 370, p ulmonary embolism protocol. 3-D postprocessing was performed.. FINDINGS: There are no filling defects within the pulmonary arteries or segmental branches to suggest pulmonary embolism. The anterior right upper lobe pulmonary mass consistent with neoplasm has decreased in size in the in terval from 4.0 x 2.3 cm to now 2.6 x 2.3 cm. There are moderate emphysematous changes. There is no new consolidative/airspace density. There is no pleural effusion or pneumothorax. Mild mediastinal and right hilar lymphadenopathy is again demonstrated but there has been slight redu ction in size a few of the lymph nodes. No focal osseous lesions are seen. Limited scanning the upper abdomen reveals 3.6 cm aneurysmal dilatation of the abdominal aorta. IMPRESSION: 1. No evidence of pulmonary embolism. 2. Mild reduction in size of the right upper lobe neoplastic mass and mild reduction in size in the m ediastinal and right hilar lymphadenopathy. See above. 3. Moderate emphysematous changes. 4. 3.6 cm abdominal aortic aneurysm.
== END | disposition home or self-care (01) ==
LOC: RADCTMAIN 14:08
PROVIDERS: ATTEND Internal Medicine Hematology & Oncology
DX: C34.11 Malignant neoplasm of upper lobe, right bronchus or lung (principal); I71.40 Abdominal aortic aneurysm, without rupture, unspecified; J43.9 Emphysema, unspecified; C71.9 Malignant neoplasm of brain, unspecified
CPT/HCPCS: 82565; 84520; 71275; 36415; Q9967

== ENCOUNTER → 2023-11-07 | Outpatient (CLI) | payer OTHER ==
[2023-11-07 15:09] LABS: African American GFR (CKD) >90 (>60 ml/min/1.73 sqM); Blood Urea Nitrogen 13 mg/dL (7-17); Non-African American GFR(CKD) 85 (>60 ml/min/1.73 sqM)
--- NOTE | 2023-11-07 15:58 | CT ---
EXAMINATION TYPE: CT ChestAbdPelvis w con DATE OF EXAM: 11/07/2023 INDICATION: Metatstatic brain and lung cancer COMPARISON: 09/26/2023 CT DLP: 1459.8 mGycm CONTRAST: Performed with Oral Contrast and with IV Contrast, patient injected with 100 cc mL of Isovue 300. TECHNIQUE: Axial images at 5 mm thick sections. Reconstructed images in the coronal plane. Delayed images through the kidneys. FINDINGS: CT CHEST: Portion of the thyroid visualized is normal. There is a 1.8 x 4.2 cm pleural-based density anterior lateral right apex. This is slightly larger th an comparison. Some pneumonitis changes within the right posterior hilar region, example image series 4 image 31. There is a 0.7 cm density in the anterior right mid lung. Series 4 image 34, present previously. Coup le of small right mid lung anterior densities were present previously. Some pleural based triangular density appears stable in the anterior left midlung. Example image ser ies 4 image 40. Some right hilar density may be present, series 4 image 39 mediastinal windows. Borderline size pretracheal lymphadenopathy is present. Multiple small lymph nodes are in the aortopu lmonic window. The ascending aorta diameter at the level of the main pulmonary artery is 3.3 cm. The main pulmonary artery diameter at the bifurcation is 2.[address] ABDOMEN: Liver: Normal Spleen: Normal Pancreas: Normal Adrenal glands: Some mild thickening of the left adrenal gland appears stable Gallbladder: Normal Kidneys: No masses are evident. No hydronephrosis is present. No cysts are present. Delayed images were obtained through the kidneys, which remain unremarkable. Aorta: Vascular calcification is within the aorta. There is an aortic aneurysm within the midabdomen level of the renal arteries terminating at the bifurcation. Greatest AP diameter is 4.4 cm. Inferior vena cava: Normal. CT PELVIS: Loops of bowel within the abdomen and pelvis are normal. There are loops of bowel which are incom pletely distended or lack oral contrast limiting their evaluation. Appendix: Not identified. No dilated tubular structure or inflammatory changes evident. Urinary bladder: There may be some mildly diffuse thickened wall. Genitourinary structures: Uterus and adnexa appear normal. Osseous structures: No suspicious lytic or sclerotic lesions. Scoliosis within the lumbar spine. Some degenerative disc changes are present. IMPRESSION: 1. Abdominal aortic aneurysm of 4.4 cm. 2. Suspicious enlarging mass anterior lateral right upper lung field. 3. Additional pleural-based densities and findings are stable from comparison. 4. Shotty lymphadenopathy throughout the mediastinum.
== END | disposition home or self-care (01) ==
LOC: RADCTMAIN 13:42
PROVIDERS: ATTEND Internal Medicine Hematology & Oncology
DX: C79.31 Secondary malignant neoplasm of brain (principal); C34.11 Malignant neoplasm of upper lobe, right bronchus or lung; I71.40 Abdominal aortic aneurysm, without rupture, unspecified; R59.1 Generalized enlarged lymph nodes; J44.9 Chronic obstructive pulmonary disease, unspecified; E78.5 Hyperlipidemia, unspecified
CPT/HCPCS: 82565; 84520; 71260; 74177; 36415; Q9967

== ENCOUNTER → 2023-12-07 | Outpatient (CLI) | payer OTHER ==
--- NOTE | 2023-12-08 18:32 | MR ---
EXAMINATION TYPE: MR brain wo/w con DATE OF EXAM: 12/07/2023 COMPARISON: 09/25/2023 HISTORY: Brain cancer, lung cancer CONTRAST: Performed utilizing 8.5 mL intravenous Gadavist gadolinium contrast. TECHNIQUE: Multiplanar, multiecho imaging on a 3.0 Ketty magnet is performed through the brain. Stud y is performed within 24 hours of arrival to the hospital. The craniovertebral junction is normal. The pituitary is normal. Diffusion-weighted imaging is performed. White matter hyperintensities within the left frontal lobe white matter. This is hyperintense on inversion recovery and T2-weighted sequences. Additional deep w elijah matter hyperintensities in the posterior left centrum semiovale. Following contrast administration enhancing lesions within the medial left frontal lobe measuring 1.0 cm. There is an additional small nodule at the posterior left centrum semiovale measuring 0.6 cm. Ad ditional punctate hyperintensities at the left vertex, series 8011.2. Findings are suspicious for met astatic disease. Previous lesion within the right cortical sylvian fissure and right anterior temporal lobe appear res olved. Scattered deep white matter changes are evident on T2 and inversion recovery weighted sequences. Thes e areas are nonspecific and can relate to microvascular ischemic change. Ventricles and sulci are appropriate for the patient age. There is fluid within scattered left mastoid air cells compatible some mild mastoiditis. IMPRESSION: 1. 1. At least 3 enhancing lesions within the left centrum semiovale. These are minimally larger than co mparison. 2 previous right lung punctate enhancements not identified on the current exam.
== END | disposition home or self-care (01) ==
LOC: RADMRIMAIN 14:12
PROVIDERS: ATTEND Radiology Radiation Oncology
DX: G93.89 Other specified disorders of brain (principal); C79.31 Secondary malignant neoplasm of brain; C34.90 Malignant neoplasm of unspecified part of unspecified bronchus or lung; R91.8 Other nonspecific abnormal finding of lung field
CPT/HCPCS: 70553; A9585

== ENCOUNTER → 2024-04-29 | Outpatient (CLI) | payer OTHER ==
--- NOTE | 2024-04-29 16:48 | MR ---
EXAMINATION TYPE: MR brain wo/w con DATE OF EXAM: 04/29/2024 4:23 PM CLINICAL INDICATION: Female, 63 years old with history of G93.9, C34.11; PHH, Lung and Brain cancer, Hx of seizure COMPARISON: 12/07/2023 TECHNIQUE: Multi planar, multi sequence imaging was performed through the brain including: T1, T2, In version recovery, susceptibility weighted imaging and gradient echo imaging and Diffusion weighted im aging. The patient was then given intravenous contrast and multi planar, T1 fat-saturation images wer e obtained. IV Contrast: 8.5 cc Gadavist FINDINGS: Scattered enhancing metastatic disease. Example includes * 9 mm in the left frontal lobe series 1001 image 141 previously similar. * 4 mm image 143 image 152 previously similar. * 4 mm image 135 measuring 6 mm previously 2 mm * 5 mm image 131 left parietal lobe right parietal lobe measuring 5 mm image 125 previously 3 mm * Right Cerebellum is similar measuring 2 mm image 53 * Right temporal lobe anteriorly measuring 6 mm previously 2 mm image 54 The koch-white junctions, ventricular system, basal cisterns appear unremarkable. Diffusion-weighted imaging shows no evidence of restricted diffusion to suggest acute/subacute infarct. Intracranial ar terial flow voids are maintained. Midline structures show no abnormality. Scattered foci of high T2 s ignal intensity are seen within the periventricular white matter. The susceptibility weighted images do not reveal any evidence for micro-hemorrhage. After administration of gadolinium, no abnormal enha ncement is seen. The bone marrow signal is within normal limits. Paranasal sinuses and mastoid air cells: No significant paranasal sinus disease. Visualized orbits: Orbital contents are intact. Atherosclerosis of the left vertebral artery intracranial portion with at least 50% stenosis image 23 postcontrast. IMPRESSION: 1. Scattered metastatic disease a majority of which are at the koch-white matter junction. Some of t hese are similar in size while others are new and/or increasing in size concerning for progression of disease. 2. Atherosclerosis of the left vertebral artery intracranial portion with at least 50% stenosis imag e 23 postcontrast. [facility], , 04/29/2024 4:45 PM
== END | disposition home or self-care (01) ==
LOC: RADMRIMAIN 15:36
PROVIDERS: ATTEND Radiology Radiation Oncology
DX: C79.31 Secondary malignant neoplasm of brain (principal); C34.11 Malignant neoplasm of upper lobe, right bronchus or lung; I65.02 Occlusion and stenosis of left vertebral artery; R91.8 Other nonspecific abnormal finding of lung field
CPT/HCPCS: 70553

== ENCOUNTER → 2024-05-14 | Outpatient (CLI) | payer OTHER ==
[2024-05-14 11:33] LABS: African American GFR (CKD) >90 (>60 ml/min/1.73 sqM); Blood Urea Nitrogen 7 mg/dL (7-17); Non-African American GFR(CKD) 87 (>60 ml/min/1.73 sqM)
--- NOTE | 2024-05-14 13:28 | CT ---
EXAMINATION TYPE: CT ChestAbdPelvis w con CT DLP: 1440 mGycm, Automated exposure control for dose reduction was used. DATE OF EXAM: 05/14/2024 1:14 PM COMPARISON: CT chest abdomen and pelvis 11/07/2023, 09/26/2023, 04/12/2023 CLINICAL INDICATION:Female, 63 years old with history of C34.11 MALIGNANT NEOPLASM OF UPPER LOBE, RIG HT BRO; PHH, f/u lung and brain ca Technique: Multiple axial images of the chest, abdomen, and pelvis were obtained following the intrav enous administration of 100 mL Isovue-300. Oral contrast was administered. Two-dimensional coronal an d sagittal reconstructions were obtained. Findings: CHEST: LUNGS/ PLEURA: No pleural effusion, pneumothorax, or focal consolidation. Spiculated anterior right u pper lobe mass measuring 3.6 x 1.4 cm (series 3, image 12). Previously 4.2 x 1.8 cm. Few stable subc entimeter right midlung densities. No new or enlarging pulmonary nodules. Mild centrilobular emphysem atous changes. AIRWAY: Patent and unremarkable.. HEART: Size within normal limits. No pericardial effusion. Small coronary artery calcifications. MEDIASTINUM: Slightly decreased size mediastinal lymph nodes measuring less than 1 cm short axis exam includes a AP window lymph node measuring 6 cm short axis, previously 9 mm. VASCULATURE: No aortic aneurysm. Mild atelectatic calcification of the aorta and its branches. MUSCULOSKELETAL: No acute osseous abnormalities. No aggressive osseous lesion. SOFT TISSUES/LYMPH NODES: Unremarkable. LOWER NECK: No significant findings. ABDOMEN: ABDOMEN LIVER: Unremarkable. Incidental Christina lobe variant. GALLBLADDER AND BILE DUCTS: Unremarkable. PANCREAS: Unremarkable. SPLEEN: Unremarkable. ADRENAL GLANDS: Right adrenal gland is unremarkable. Thickening of the left adrenal gland is stable. KIDNEYS AND URETERS: No evidence of hydronephrosis or renal calculus. The kidneys enhance symmetrical ly. Contrast is demonstrated within both collecting systems on the delayed phase. PELVIS BLADDER: Unremarkable REPRODUCTIVE: Unremarkable. ABDOMEN & PELVIS STOMACH AND BOWEL: Stomach and duodenum are unremarkable. No focal bowel wall thickening or surroundi ng inflammatory changes. Enteric contrast reaches the distal small bowel. No evidence of bowel obstru ction. PERITONEUM: No evidence of pneumoperitoneum or free fluid. VASCULATURE: Infrarenal abdominal aortic fusiform aneurysm with mural thrombus. This measures 4.4 cm. Previously measured 4.4 cm. Moderate atherosclerotic calcification of the aorta and its branches. MUSCULOSKELETAL: No acute osseous abnormalities. No aggressive osseous lesion. S-shaped scoliotic cur vature of the thoracal lumbar spine. Multilevel degenerative disc disease. LYMPH NODES: No evidence for lymphadenopathy. SOFT TISSUE/ABDOMINAL WALL: Unremarkable IMPRESSION: 1. Marginal decrease in size of peripheral right upper lobe spiculated pulmonary mass. 2. Mild decreased in size of subcentimeter mediastinal lymph nodes from prior exam. 3. No evidence of metastatic disease within the abdomen or pelvis. 4. Stable infrarenal abdominal aortic aneurysm measuring up to 4.4 cm. [facility], , 05/14/2024 1:26 PM
== END | disposition home or self-care (01) ==
LOC: RADCTMAIN 10:44
PROVIDERS: ATTEND Internal Medicine Hematology & Oncology
DX: C34.11 Malignant neoplasm of upper lobe, right bronchus or lung
CPT/HCPCS: 36415; 71260; 74177; 82565; 84520

== ENCOUNTER → 2024-07-01 | Outpatient (CLI) | payer OTHER ==
--- NOTE | 2024-07-03 07:50 | MR ---
EXAMINATION TYPE: MR brain wo/w con DATE OF EXAM: 07/01/2024 2:20 PM COMPARISON: 04/29/2024 CLINICAL INDICATION: Female, 64 years old with history of G93.9, C34.11, C79.31, Lung cancer with bra in mets, F/U comparision to prior MR. TECHNIQUE: Multi planar multi sequence imaging of the brain. CONTRAST: Patient received 8 mL intravenous Gadobutrol gadolinium contrast. Pre and post contrast en hanced images are obtained. FINDINGS: The ventricles, basal cisterns and sulci overlying the cerebral convexities are mildly enlarged. Cer ebellar atrophic changes redemonstrated. There is evidence of mild periventricular white matter ischemic demyelination. Remote deep white matter insults are also noted. No acute edema is seen on diffusion weighted imaging. There is no evidence for midline shift or mass effect. Acute intracranial hemorrhage or extra-axial collection is not evident. Enhancing lesions are redemonstrated including high left frontal lesion currently measuring 8.3 mm ve rsus 9 mm previously. High left frontal parietal lobe lesion seen on postcontrast image 130 measures 3.4 mm versus 6 mm. High left parietal lesion seen on image 138 postcontrast measures 2.1 mm versus 4 mm previously. Left parietal lobe measures 3.1 mm versus 5 mm. Essentially stable right frontal shravan etal lesion measuring 3 mm versus 3.7 mm previously. 2 right temporal lesions currently measures 3.4 and 3.4 mm 4 mm and 3 mm previously. No new lesions are identified. Changes of chronic left-sided mastoiditis and chronic sinusitis. IMPRESSION: 1. Tiny metastatic lesions persist however appear to be smaller in size. No new lesions are identifie d at this time. 2. Atherosclerosis of the left vertebral artery intracranial portion with at least 50% stenosis. [facility], , 07/03/2024 7:48 AM
== END | disposition home or self-care (01) ==
LOC: RADMRIMAIN 13:34
PROVIDERS: ATTEND Radiology Radiation Oncology
DX: C79.31 Secondary malignant neoplasm of brain (principal); G93.9 Disorder of brain, unspecified; C34.11 Malignant neoplasm of upper lobe, right bronchus or lung; I67.2 Cerebral atherosclerosis
CPT/HCPCS: 70553; A9585

== ENCOUNTER → 2024-08-14 | Outpatient (CLI) | payer OTHER ==
[2024-08-14 12:05] LABS: African American GFR (CKD) >90 (>60 ml/min/1.73 sqM); Blood Urea Nitrogen 14 mg/dL (7-17); Non-African American GFR(CKD) 88 (>60 ml/min/1.73 sqM)
--- NOTE | 2024-08-14 14:07 | CT ---
EXAMINATION TYPE: CT ChestAbdPelvis w con DATE OF EXAM: 08/14/2024 COMPARISON: 05/14/2024 HISTORY: Lung Ca. Last Chemo x [address] DLP: 1331.5 mGycm Automated exposure control for dose reduction was used. CONTRAST: CT scan of the chest, abdomen and pelvis is performed with Oral Contrast and with IV Contrast, patien t injected with 100 mL of Isovue 300. FINDINGS: CT chest: There are mild emphysematous changes with an upper lobe predominance. The right upper lobe pleural-based mass essentially stable at 4.2 x 1.6 cm. There is a stable 8 mm gr oundglass nodule in the right upper lobe There is no abnormal airspace/consolidative density or abnormal interstitial density. There is no pleural effusion, pleural thickening or pneumothorax. The great vessels and chest are normal there is no mediastinal, hilar or axillary adenopathy. No focal osseous lesions are seen. CT abdomen and pelvis: Gallbladder is normal without distention, pericholecystic fluid, wall thickening or gallstone. There is no biliary ductal dilatation. There is no focal mass or organomegaly involving the liver, pancreas, spleen or adrenal glands.. There is no solid renal mass or hydronephrosis. There is a stable 4.4 cm infrarenal abdominal aortic aneurysm with extensive mural thrombus. There is no retroperitoneal adenopathy.. The bowel loops are normal in caliber and there is no dilatation or obstruction. No inflammatory méndez ges identified in the bowel wall and mesentery. There is no free intracranial air or fluid. There is no pelvic mass or adenopathy. There is no free fluid within the pelvis. No focal osseous lesions are seen. Soft tissue the abdomen and pelvis are normal. IMPRESSION: 1. Stable right upper lobe pleural-based mass. 2. Stable 7 to 8 mm ground glass density right upper lobe. 3. No new abnormalities within the chest. 4. No evidence of metastatic disease in the abdomen or pelvis. 5. Stable 4.4 cm infrarenal abdominal aortic aneurysm with extensive mural thrombus. [facility], , 08/14/2024 2:05 PM
== END | disposition home or self-care (01) ==
LOC: RADCTMAIN 11:06
PROVIDERS: ATTEND Internal Medicine Hematology & Oncology
DX: C34.11 Malignant neoplasm of upper lobe, right bronchus or lung (principal); C79.31 Secondary malignant neoplasm of brain; J44.9 Chronic obstructive pulmonary disease, unspecified; E78.5 Hyperlipidemia, unspecified; J98.4 Other disorders of lung; I71.43 Infrarenal abdominal aortic aneurysm, without rupture
CPT/HCPCS: 82565; 84520; 71260; 74177; 36415; Q9967

== ENCOUNTER → 2024-10-02 | Outpatient (CLI) | payer OTHER ==
--- NOTE | 2024-10-02 13:17 | MR ---
EXAMINATION TYPE: MR brain wo/w con DATE OF EXAM: 10/02/2024 12:49 PM COMPARISON: 07/01/2024. CLINICAL INDICATION: Female, 64 years old with history of G93.9,C34.11,R91.8,C79.31; PHH, Brain and L lilli CA TECHNIQUE: Multi planar, multi sequence imaging was performed through the brain including: T1, T2, In version recovery, susceptibility weighted imaging and gradient echo imaging and Diffusion weighted im aging. The patient was then given intravenous contrast and multi planar, T1 fat-saturation images wer e obtained. IV Contrast: 8ml mL Gadobutrol FINDINGS: Redemonstration of scattered enhancing metastatic lesions. Examples include: * Medial right frontal lobe 9 mm, previously 8 mm. * Scattered koch-white matter junction lesions. * Series 701 image 124 measuring 3 mm, stable. * Image 133 measuring 2 mm, stable or fractionally smaller. * image 139 measuring 2 mm, stable * Image 95 measuring 5 mm, stable. * Image 47 Right cerebellum appearing 2 mm, unchanged Atrophic appearance to the left cerebellar hemisphere is unchanged. The koch-white junctions, ventricular system, basal cisterns appear unremarkable. Diffusion-weighted imaging shows no evidence of restricted diffusion to suggest acute/subacute infarct. Intracranial ar terial flow voids are maintained. Midline structures show no abnormality. Scattered foci of high T2 s ignal intensity are seen within the periventricular white matter. The susceptibility weighted images do not reveal any evidence for micro-hemorrhage. The bone marrow signal is within normal limits. Paranasal sinuses and mastoid air cells: Mild scattered paranasal sinus disease. Visualized orbits: Orbital contents are intact. IMPRESSION: Relatively stable scattered metastatic foci, no new lesions definitely visualized. [facility], , 10/02/2024 1:15 PM
== END | disposition home or self-care (01) ==
LOC: RADMRIMAIN 11:35
PROVIDERS: ATTEND Radiology Radiation Oncology
DX: C34.11 Malignant neoplasm of upper lobe, right bronchus or lung (principal); G93.9 Disorder of brain, unspecified; R91.8 Other nonspecific abnormal finding of lung field; C79.31 Secondary malignant neoplasm of brain
CPT/HCPCS: 70553; A9585

== ENCOUNTER → 2024-11-10 | Outpatient (CLI) | payer OTHER ==
--- NOTE | 2024-11-10 18:31 | CT ---
EXAMINATION TYPE: CT ChestAbdPelvis w con DATE OF EXAM: 11/10/2024 3:43 PM COMPARISON: 08/14/2024 CLINICAL INDICATION: Female, 64 years old with history of C34.11 LUNG CANCER, TECHNIQUE: CT imaging performed with sagittal coronal reformats. CT scan of the chest, abdomen and pe lvis is performed with Oral Contrast and with IV Contrast, patient injected with 100ml mL of Isovue [address] DLP: 1298.20 mGycm, Automated exposure control for dose reduction was used. FINDINGS: CT Chest: LUNGS: Right upper lobe pleural-based mass appears unchanged at 4.1 x 1.6 cm versus 4.3 x 1.6 cm prev iously. Adjacent additional adjacent focal opacity measures 2 cm versus 1.8 cm previously. Additional mass is difficult to exclude. The remainder of the lungs are clear. No focal consolidation otherwise seen. No pleural effusion. MEDIASTINUM: Thoracic aorta is of normal caliber. The heart is not enlarged. No evidence for media stinal mass or adenopathy. HEART: Size within normal limits. No significant coronary artery calcifications. HILAR STRUCTURES: No evidence for mass. No hilar adenopathy is appreciated. OTHER: No significant abnormality. CONTRAST CT ABDOMEN AND PELVIS FINDINGS: LIVER/GB: There is mild hepatic steatosis. No calcified gallstones. No space occupying hepatic les ion. Biliary tree is of normal caliber. PANCREAS: No inflammation. No distinct mass. SPLEEN: No splenic enlargement. No lesion seen. ADRENALS: Thickening of the adrenal glands without distinct nodule may reflect hyperplasia. KIDNEYS/BLADDER: No hydronephrosis. No nephrolithiasis. No disctinct renal mass. BOWEL: Normal appendix. Normal bowel caliber. No inflammation. GENITAL ORGANS: No gross abnormality. LYMPH NODES: No greater than 1cm abdominal or pelvic lymph nodes are appreciated. AORTA: Infrarenal abdominal aortic aneurysm measuring 4 cm AP dimension with mural thrombus seen. OSSEOUS STRUCTURES: No significant abnormality is seen. OTHER: No significant additional abnormality is seen. IMPRESSION: 1. Right upper lobe pleural-based mass is redemonstrated with an additional adjacent component which appears more conspicuous on today's study. Underlying neoplasm not excluded. 2. No evidence for metastatic disease to the abdomen or pelvis. 3. Infrarenal abdominal aortic aneurysm with mural thrombus. 4. Adrenal glandular hyperplasia. [facility], , 11/10/2024 6:28 PM
== END | disposition home or self-care (01) ==
LOC: RADCTMAIN 13:36
PROVIDERS: ATTEND Internal Medicine Hematology & Oncology
DX: C34.11 Malignant neoplasm of upper lobe, right bronchus or lung (principal); C79.31 Secondary malignant neoplasm of brain; J44.9 Chronic obstructive pulmonary disease, unspecified; I71.43 Infrarenal abdominal aortic aneurysm, without rupture; E27.8 Other specified disorders of adrenal gland; R91.8 Other nonspecific abnormal finding of lung field
CPT/HCPCS: 71260; 74177; Q9967

== ENCOUNTER → 2025-01-12 | Outpatient (CLI) | payer OTHER ==
--- NOTE | 2025-01-12 16:32 | MR ---
INDICATION: Patient age:Female; 64 years old; Reason for study: G93.9 DISORDER OF BRAIN, UNSPECIFIED; PHH. COMPARISON: Multiple MRI brain with most recent 10/02/2024. TECHNIQUE: Multi planar, multi sequence imaging was performed through the brain. The patient was then given 8.5 cc of Gadobutrol intravenously and multi planar, T1 fat-saturation images were obtained. FINDINGS: Redemonstration of scattered enhancing metastatic lesions. Examples include: * Medial left frontal lobe measuring 10 mm, previously 9 mm. * Few stable scattered enhancing lesions at the koch-white matter junction. Examples include a left posterior frontal lobe lesion (series 701, image 142). Right cerebellar lesion (series 701, image 50) . Right posterior frontal lobe 4.3 mm lesion (series 701, image 95). Left parietal lesion measuring 2 .6 mm (series 701, image 129). No definitive new enhancing lesions. The koch-white junctions, ventricular system, basal cisterns appear unremarkable. Mild cerebral volu me loss most pronounced involving the bilateral frontal lobes. Diffusion-weighted imaging shows no ev idence of restricted diffusion to suggest acute/subacute infarct. Intracranial arterial flow voids ar e maintained. Midline structures show no abnormality. Similar scattered foci of high T2/FLAIR signal intensity are seen within the periventricular and subcortical white matter. The susceptibility weight ed images do not reveal any evidence for micro-hemorrhage. Atrophic appearance to the left cerebellar hemisphere is unchanged. The bone marrow signal is within normal limits. Paranasal sinuses and mastoid air cells: Mild scattered paranasal sinus disease. Small bilateral mast oid effusions. Visualized orbits: Orbital contents are intact. IMPRESSION: Overall stable exam with no significant change in scattered metastatic foci, no new lesions definitel y visualized. [facility], , 01/12/2025 4:30 PM
== END | disposition home or self-care (01) ==
LOC: RADMRIMAIN 13:36
PROVIDERS: ATTEND Radiology Radiation Oncology
DX: G93.9 Disorder of brain, unspecified (principal)
CPT/HCPCS: 70553; A9585